=== PATIENT | male | born 1955 | race Caucasian/White ===

== ENCOUNTER 2016-12-28 14:40 | Emergency (ER) | payer OTHER ==
--- NOTE | ~2016-12-28 | ER ---
PATIENT'S NAME: ELISEO SHULTZ [facility] AGE: 61 Y [address] ROOM: [place] [id number] LOCATION: ED ADMIT DATE: 12/28/2016 ER/Outpatient Report DISCHARGE DATE: 12/28/2016 FAMILY PHYSICIAN: Lana Quintanilla MD ATTENDING PHYSICIAN: Sparkle Panda Time of Arrival: 1440. Time Seen: 1440. IDENTIFICATION: 61-year-old male. CHIEF COMPLAINT: Urinary retention. HISTORY OF PRESENT ILLNESS: The patient is a 61-year-old male with a history of bladder stones and had stone retrieval and cystoscopy this morning with Dr. Wyatt. The patient has had increasing voiding symptoms and an elevated PSA with negative prior biopsies in the past. He had bladder stones seven years ago. Most recently, he had worsening dysuria, urgency, frequency, nocturia, and started on 5 alpha- reductase inhibitor and formed bladder stones. He recently had poor emptying with residuals of [address] Wyatt's note and PSA of 25. After he went home this morning, he was had been unable to void, is very uncomfortable, diaphoretic, and lots of abdominal discomfort on arrival. Dr. Wyatt had called the ER and has said that he would be coming in to place a three-way catheter and irrigate if necessary. On the patient's arrival, again he was diaphoretic, pain 8/10 on the pain scale. PAST MEDICAL HISTORY: ALLERGIES: NO KNOWN DRUG ALLERGIES. CURRENT MEDICATIONS: 1. Flomax. 2. Avodart. MEDICAL PROBLEMS: History of BPH and bladder stones. PRIOR SURGERIES: Stone retrieval and cystoscopy. SOCIAL HISTORY: PATIENT'S NAME: ELISEO SHULTZ [facility] AGE: 61 Y [address] ROOM: [place] [address] LOCATION: ED ADMIT DATE: 12/28/2016 ER/Outpatient Report DISCHARGE DATE: 12/28/2016 FAMILY PHYSICIAN: Lana Quintanilla MD ATTENDING PHYSICIAN: Sparkle Panda The patient is , lives in [place], is an ER physician. Tobacco use, denies. Alcohol use, denies. Drug use, denies. REVIEW OF SYSTEMS: All systems reviewed and negative other than what is noted in the HPI. PHYSICAL EXAMINATION: VITAL SIGNS: Weight 71.8 kg, blood pressure 152/88, pulse 96, respirations 20, temperature 98.1, and saturations 95%. GENERAL: This 61-year-old male, diaphoretic and pale, in obvious distress. HEENT: Unremarkable. LUNGS: Clear to auscultation. HEART: Regular rate and rhythm. ABDOMEN: Tender. Three-way 24-German catheter was placed per NANNETTE Orourke, immediately with drainage of 750 mL of bloody urine with three small clots. The patient felt much better. He was observed, his pain relieved, his vital signs improved, and I did contact Dr. Wyatt. IMPRESSION: 1. Urinary retention with clots. 2. Benign prostatic hypertrophy. 3. Bladder stone status post retrieval. PLAN: Leave [place] catheter in place, may remove in the morning if clear. Levaquin 500 mg x3 days. Philo 5/325 one to two p.o. q.4-6 hours p.r.n. catheter discomfort, dispensed 20 with 0 refills, and follow up with Dr. Wyatt as needed. The patient understands and agrees, and all questions have been answered. MD DOTTIE DOUGLAS/erich /[id number] d: 12/28/16 2252 t: 12/29/16 0652, OUTPATIENT REPORT
== END 2016-12-28 15:53 | disposition disaster alternative care site (69) ==
LOC: GMED 14:40
PROC: 0T9B70Z Drainage of Bladder with Drainage Device, Via Natural or Artificial Opening (ICD-10-PCS; principal; 2016-12-28)
DX: N40.1 Benign prostatic hyperplasia with lower urinary tract symptoms (principal); R33.8 Other retention of urine; Z79.899 Other long term (current) drug therapy; Z98.890 Other specified postprocedural states

== ENCOUNTER → 2016-12-28 | Day surgery (SDC) | payer OTHER ==
[~2016-12-28] VITALS: Ht 170.2 cm; Wt 72.9 kg
[~2016-12-28] MED LIST: ADVIL200 MG PO; AVODART0.5 MG PO; FLOMAX0.4 MG PO
--- NOTE | ~2016-12-28 | HP ---
PATIENT'S NAME: ELISEO SHULTZ [facility] AGE: 61 Y [address] ROOM: [place], [place] [address] LOCATION: [facility] [place] ADMIT DATE: 12/21/2016 History & Physical DISCHARGE DATE: FAMILY PHYSICIAN: PHYSICIAN, NO ATTENDING PHYSICIAN: Everardo Kingsley DATE OF SERVICE: He will be in tomorrow. CHIEF COMPLAINT: Bladder stones with increasing voiding symptoms. HISTORY OF PRESENT ILLNESS: This is a 61-year-old gentleman recently evaluated with increasing voiding symptoms and an elevated PSA. He has a past history of an elevated PSA with negative prior biopsies 9 and 10 years ago. Approximately seven years ago, he was found to have a bladder stone. He underwent cystoscopy, retrograde and litholapaxy. More recently, he has had worsening dysuria, urgency, frequency, nocturia, etc. He had been started on a 9-nglsp-kxwbpnvje inhibitor when he had formed the bladder stones and had a large prostate volume on the ultrasound. He did not stay on the Avodart, and he did relatively well for a symptomatic standpoint, he did not seek any interim followup. Recent evaluation revealed a poor emptying with residuals of almost 400 mL. PSA was up to 25. His symptoms suggest the possibility of an infection, but his culture was negative. However, he experienced marked symptomatic improvement on empiric Levaquin and reintroduction of an alpha aristeo in the form of tamsulosin. He underwent a cystoscopy. He has an elongated and obstructed prostatic urethra. Bladder is consistent with chronic outlet obstruction with diverticula and cellule formation. He had once again formed significant stone burden in the bladder. He has two stones over a centimeter each. Ultrasound revealed his volume to be 56.6 mL currently. The biopsies came back benign. He presents at this time for cystoscopy, upper tract evaluation and removal of his bladder stones. He continues on combination therapy in the form of tamsulosin and Avodart. PAST MEDICAL HISTORY: Most of his history is urologic as outlined above. He has a diagnosis of psoriasis. MEDICATIONS: At initial followup, he was only taking an aspirin a day. As noted, he is now also taking tamsulosin and Avodart. PATIENT'S NAME: ELISEO SHULTZ [facility] AGE: 61 Y [address] ROOM: [place] [address] LOCATION: [facility] [place] ADMIT DATE: 12/21/2016 History & Physical DISCHARGE DATE: FAMILY PHYSICIAN: PHYSICIAN, NO ATTENDING PHYSICIAN: Everardo Kingsley ALLERGIES: NONE REPORTED. REVIEW OF SYSTEMS: He denies any cardiopulmonary complaints. Voiding symptoms are as noted above. There are no other pertinent positives. FAMILY HISTORY: His dad had a history of an elevated PSA. As far as we know, there is no urologic disease. SOCIAL HISTORY: He is and lives with his . 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 He does not smoke. PHYSICAL EXAMINATION: GENERAL: Mahin appears his usual healthy and pleasant self. VITAL SIGNS: As recorded. He is 163 pounds. HEART: Currently regular. LUNGS: Clear. ABDOMEN: No mass or tenderness. : As outlined above per cystoscopy and ultrasound. EXTREMITIES: No clubbing, cyanosis, or edema. He has skin changes consistent with his diagnosis of psoriasis. IMPRESSION: 1. Benign prostatic hyperplasia with bladder outlet obstruction. 2. Bladder stones. 3. Hematuria, likely related to stones. PLAN: Cystoscopy with removal of bladder stones, and we will obtain retrogrades to complete his upper tract evaluation. Having been through this before, he understands the plan as well as the attendant risks and benefits. He has had his questions answered and he wished to proceed. EVERARDO KINGSLEY MD [facility]/shannanl PATIENT'S NAME: ELISEO SHULTZ [facility] AGE: 61 Y [address] ROOM: [place] [address] LOCATION: [facility] [place] ADMIT DATE: 12/21/2016 History & Physical DISCHARGE DATE: FAMILY PHYSICIAN: PHYSICIAN, NO ATTENDING PHYSICIAN: Everardo Kingsley /[id number] CC: Lana Quintanilla MD D: [id number] T: HISTORY & PHYSICAL
--- NOTE | ~2016-12-28 | OR ---
PATIENT'S NAME: ELISEO SHULTZ [facility] AGE: 61 Y [address] ROOM: [place] [address] LOCATION: [facility] [place] ADMIT DATE: 12/28/2016 OR/Procedure Report DISCHARGE DATE: FAMILY PHYSICIAN: Lana Quintanilla MD ATTENDING PHYSICIAN: Everardo Kingsley SURGEON: Everardo Kingsley MD ROLL HAULER: DATE OF PROCEDURE: 12/28/2016 PREOPERATIVE DIAGNOSES: 1. Benign prostatic hypertrophy and bladder outlet obstruction. 2. Extensive bladder calculi secondary to benign prostatic hypertrophy and bladder outlet obstruction. 3. Hematuria, likely secondary to extensive bladder calculi secondary to benign prostatic hypertrophy and bladder outlet obstruction. 4. History of elevated PSA, status post prior biopsy. POSTOPERATIVE DIAGNOSES: 1. Benign prostatic hypertrophy and bladder outlet obstruction. 2. Extensive bladder calculi secondary to benign prostatic hypertrophy and bladder outlet obstruction. 3. Hematuria, likely secondary to extensive bladder calculi secondary to benign prostatic hypertrophy and bladder outlet obstruction. 4. History of elevated PSA, status post prior biopsy. PROCEDURES PERFORMED: 1. Cystoscopy and retrograde. 2. Extensive cystolitholapaxy. ANESTHESIA: Sedation. INDICATION: This is a 61-year-old gentleman with the above-noted diagnoses. He has been through this before. He has had biopsies going back as far as 9 and 10 years. He had bladder stones in 2009, which were removed. He did not stay on medical management. He had presented recently with recurrent symptoms. PSA was up at further. He had extensive BPH. His cystoscopy revealed multiple bladder stones. He presents at this time for cystoscopy, upper tract evaluation, and removal of his bladder stones. DESCRIPTION OF PROCEDURE: Having obtained his informed consent, the patient was taken to the operating room. He was prepped and draped sterilely and in lithotomy position. IV sedation was administered. A single dose of Levaquin was administered. Cystoscopy was undertaken. The course of the urethra was unremarkable back to PATIENT'S NAME: ELISEO SHULTZ [facility] AGE: 61 Y [address] ROOM: [place] [address] LOCATION: [facility] [place] ADMIT DATE: 12/28/2016 OR/Procedure Report DISCHARGE DATE: FAMILY PHYSICIAN: Lana Quintanilla MD ATTENDING PHYSICIAN: Everardo Kingsley the prostate which was elongated and obstructed with trilobar hypertrophy. It was quite friable. We have gotten him back on 0-scamr-nqncexhwt therapy. Moving into the bladder, with better visualization, he had much more extensive stone formation than we could appreciate with the flexible scope. We could get his bladder distended a bit more and saw 2 large dominant stones and then a number of 6 to 10 mm stones. Total stone burden was 4 to 5 cm. As noted on his diagnostic cystoscopy, he had multiple cellule and diverticula formation consistent with chronic obstruction. Importantly, with careful examination using the 30- and 70-degree lenses, I found no suspicious mucosal lesions. His orifices were pushed laterally from his hypertrophy. I first had to use a 70-degree lens to find them. Once I identify them, I could see them with the 30-degree lens and used a cone-tipped catheter. On preliminary cystoscopy, we saw his extensive stone burden in the bladder. I did not see any stones overlying the anticipated course of the ureters or the renal shadows. Contrast was instilled bilaterally. He had a compound calyx on the upper pole right. Otherwise, the ureters were delicate and unobstructed. They do demonstrate marked J-hooking at the level of the bladder. The CyberWand was now prepared and placed. We went about a tedious cystolithotripsy of all of the stones. Ultimately, we had rendered him stone- free. The bladder was drained, and the case was concluded. The patient tolerated the procedures well. Blood loss was negligible. No specimens were sent. The patient returned to the outpatient recovery area, awake and in stable condition. EVERARDO KINGSLEY MD [facility]/modl /[id number] CC: Lana Quintanilla MD d: 12/28/16 1145 t: 01/03/17 1354, OPERATIVE SUMMARY
[2016-12-28 06:55] LABS: BASOPHIL % 0.5 %; EOSINOPHIL # 0.2 K/uL (0.0-0.5); EOSINOPHIL % 2.5 %; HEMATOCRIT 46.3 % (37.0-53.0); HEMOGLOBIN 15.4 g/dL (11.0-16.0); IMMATURE GRANULOCYTE % 0.3 %; LYMPHOCYTE # 1.6 K/uL (0.8-4.0); LYMPHOCYTE % 20.7 %; MCH 28.5 pg (27.0-34.0); MCHC 33.3 gm/dL (32.0-36.5); MCV 85.6 fl (83.0-98.0); MONOCYTE # 0.9 K/uL (0.0-1.0); MONOCYTE % 11.4 %; MPV 9.9 fl (9.4-12.4); NEUTROPHIL % 64.6 %; NRBC % 0 /100WBC (0-0.00); PLATELET COUNT 261 K/uL (150-450); RBC 5.41 M/uL (3.50-5.50); RDW-CV 13.9 % (11.9-14.6); WBC 7.7 K/uL (4.0-11.0)
[2016-12-28 07:11] LABS: ALBUMIN 3.6 gm/dL (3.5-5.0); ANION GAP 14.1 (10.0-19.0); CALCIUM 8.6 mg/dL (8.5-10.5); CREATININE 1.3 mg/dL (0.6-1.3); POTASSIUM 4.1 mMol/L (3.7-5.1); TOTAL BILIRUBIN 0.4 mg/dL (0.0-1.5); TOTAL PROTEIN 7.1 g/dL (6.0-8.4)
== END ==
LOC: GPOC 12-14 10:00 → GSDC 12-21 06:30
PROVIDERS: Urology
PROC: 0TCB8ZZ Extirpation of Matter from Bladder, Via Natural or Artificial Opening Endoscopic (ICD-10-PCS; principal; 2016-12-28)
PROC: BT14YZZ Fluoroscopy of Kidneys, Ureters and Bladder using Other Contrast (ICD-10-PCS; 2016-12-28)
DX: N21.0 Calculus in bladder (principal); N40.1 Benign prostatic hyperplasia with lower urinary tract symptoms; N13.8 Other obstructive and reflux uropathy; R31.9 Hematuria, unspecified; K21.9 Gastro-esophageal reflux disease without esophagitis; L40.9 Psoriasis, unspecified; Z98.890 Other specified postprocedural states; Z79.82 Long term (current) use of aspirin
CPT/HCPCS: J1100; J1956; J2001; J2250; J2405; J7030